=== PATIENT | male | born 1990 ===

== ENCOUNTER 2017-12-12 08:40 | Emergency (ER) | payer OTHER ==
[2017-12-12 08:49] VITALS: BP 128/86; PULSE 93; RESP 18; TEMP 99; O2SAT 97
--- NOTE | 2017-12-12 08:59 | C.PDOC ---
History Of Present Illness 27 y/o male presents to the ER complaining of runny nose,cough, and chest pain which has been present for the past 2 days. Patient denies having headache, SOB , nausea,and vomiting. Patient does not have any other complaints. Time Seen by Provider: 12/12/17 08:50 Chief Complaint (Nursing): Chest Pain History Per: Patient History/Exam Limitations: no limitations Onset/Duration Of Symptoms: Days Current Symptoms Are (Timing): Still Present Severity: Moderate Past Medical History Reviewed: Historical Data, Nursing Documentation, Vital Signs Vital Signs: Last Vital Signs Temp 99 F 12/12/17 08:46 Pulse 93 H 12/12/17 08:46 Resp 18 12/12/17 08:46 BP 128/86 12/12/17 08:46 Pulse Ox 97 12/12/17 09:18 - Medical History PMH: No Chronic Diseases Surgical History: No Surg Hx Family History: States: No Known Family Hx - Social History Hx Alcohol Use: Yes Hx Substance Use: No - Immunization History Hx Tetanus Toxoid Vaccination: No Hx Influenza Vaccination: No Hx Pneumococcal Vaccination: No Review Of Systems Except As Marked, All Systems Reviewed And Found Negative. ENT: Positive for: Nose Discharge Cardiovascular: Positive for: Chest Pain Respiratory: Positive for: Cough. Negative for: Shortness of Breath Gastrointestinal: Negative for: Nausea, Vomiting Neurological: Negative for: Headache Physical Exam - Physical Exam Appears: Non-toxic, No Acute Distress Skin: Normal Color, Warm Head: Atraumatic, Normacephalic Eye(s): bilateral: Normal Inspection, Other (conjunctival injection) Nose: Normal Oral Mucosa: Moist Throat: Normal, No Erythema, No Exudate Neck: Supple Chest: Symmetrical Cardiovascular: Rhythm Regular Respiratory: Normal Breath Sounds, No Accessory Muscle Use, No Rales, No Rhonchi , No Wheezing Gastrointestinal/Abdominal: Normal Exam, Soft, No Tenderness Extremity: Normal ROM, No Pedal Edema Neurological/Psych: Oriented x3, Normal Speech, Normal Motor, Normal Sensation ED Course And Treatment ECG: Interpreted By Me, Viewed By Me ECG Rhythm: Sinus Rhythm Interpretation Of ECG: NSR with no ST elevations/depressions Rate From EC O2 Sat by Pulse Oximetry: 97 (RA) Pulse Ox Interpretation: Normal Medical Decision Making Medical Decision Making: Impression: Viral Syndrome Plan: --EKG --Motrin 600 mg PO --Tylenol 975 mg PO Disposition - Disposition Disposition: HOME/ ROUTINE Disposition Time: 09:15 Condition: STABLE Prescriptions: Ibuprofen [Motrin] 600 mg PO TID #15 tab Instructions: Viral Syndrome (ED) Forms: Gen Discharge Inst Swiss, [facility] (Swiss), Work Excuse - POA Present On Arrival: None - Clinical Impression Clinical Impression: Influenza-like illness - Scribe Statement The provider has reviewed the documentation as recorded by the Garo Gonzalez Provider Attestation: All medical record entries made by the Garo were at my direction and personally dictated by me. I have reviewed the chart and agree that the record accurately reflects my personal performance of the history, physical exam, medical decision making, and the department course for this patient. I have also personally directed, reviewed, and agree with the discharge instructions and disposition.
--- NOTE | 2017-12-13 11:48 | CARD ---
APPROVED REPORT EKG Measurement Heart [id number] <Conclusion> Normal sinus rhythm Normal ECG
== END 2017-12-12 09:26 | disposition home or self-care (01) ==
LOC: C.ER 08:40
DX: J11.1 Influenza due to unidentified influenza virus with other respiratory manifestations (principal); Z72.0 Tobacco use